=== PATIENT | male | born 1995 ===

== ENCOUNTER 2016-05-04 13:20 | Emergency (ER) | payer BC ==
[2016-05-04 14:55] VITALS: BP 131/48
--- NOTE | 2016-05-04 15:40 | UC ---
Lower Extremity/Ankle HPI - HPI Summary HPI Summary: 21 year old male patient complaining of right sided medial arch pain which began after prolonged running. Pain is the worse with the first steps of the morning and with his first steps after prolonged sitting. Flexion of the right foot increases the pain. Patient reports slight swelling in the right foot. - History of Current Complaint Chief Complaint: UCLowerExtremity Stated Complaint: FOOT INJURY Time Seen by Provider: 05/04/16 15:16 Hx Obtained From: Patient Onset/Duration: Lasting Minutes - Lasting the first few steps of the day Aggravating Factor(s): Ambulation Able to Bear Weight: Yes - Risk Factors Gout Risk Factors: Negative DVT Risk Factors: Negative Septic Arthritis Risk Factor: Negative - Allergies/Home Medications Allergies/Adverse Reactions: Allergies Allergy/AdvReac Type Severity Reaction Status Date / Time No Known Allergies Allergy Verified 05/04/16 14:55 Home Medications: Home Medications NK [No Home Medications Reported] 05/04/16 [History Confirmed 05/04/16] PMH/Surg Hx/FS Hx/Imm Hx Previously Healthy: Yes Endocrine History Of: Denies: Diabetes, Thyroid Disease, Hyperthyroidism, Hypothyroidism, Dyslipidemia Cardiovascular History Of: Denies: Cardiac Disorders, Hypertension, Pacemaker/ICD, Myocardial Infarction , Congestive Heart Failure, Atrial Fibrillation, Deep Vein Thrombosis, Bleeding Disorders Respiratory History Of: Denies: COPD, Asthma, Bronchitis, Pneumonia, Pulmonary Embolism GI/ History Of: Denies: Gastroesophageal Reflux, Ulcer, Gastrointestinal Bleed, Gall Bladder Disease, Kidney Stones, Diverticulitis, Renal Disease, Urosepsis Neurological History Of: Denies: TIA, CVA, Dementia, Seizures, Migraine Psychological History Of: Denies: Anxiety, Depression, Bipolar Disorder, Schizophrenia, Post Traumatic Stress Disorder - Surgical History Surgical History: Yes Surgery Procedure, Year, and Place: left shoulder surgery x2. piece of glass removed from right knee - Family History Known Family History: Positive: Unknown - Social History Occupation: Student Lives: Alone Alcohol Use: None Substance Use Type: None Smoking Status (MU): Never Smoked Tobacco Have You Smoked in the Last Year: No - Immunization History Most Recent Influenza Vaccination: 2016 fall Review of Systems Constitutional: Negative Skin: Negative Eyes: Negative ENT: Negative Respiratory: Negative Cardiovascular: Negative Gastrointestinal: Negative Genitourinary: Negative Motor: Other - Right footed arch pain with the first steps after positional changes Neurovascular: Negative Musculoskeletal: Negative Neurological: Negative Psychological: Negative All Other Systems Reviewed And Are Negative: Yes Physical Exam Triage Information Reviewed: Yes Appearance: Well-Appearing Vital Signs: Initial Vital Signs Temp 97.3 F 05/04/16 14:51 Pulse 47 05/04/16 14:51 Resp 16 05/04/16 14:51 BP 131/48 05/04/16 14:51 Pulse Ox 100 05/04/16 14:51 Vital Signs Reviewed: Yes Eye Exam: Normal Eyes: Positive: Conjunctiva Clear ENT Exam: Normal ENT: Positive: Normal ENT inspection, Hearing grossly normal, Pharynx normal, TMs normal Dental Exam: Normal Neck: Positive: Supple, Nontender Respiratory: Positive: Chest non-tender, Lungs clear, Normal breath sounds Cardiovascular: Positive: RRR, No Murmur, Pulses Normal Abdomen Description: Positive: Nontender, No Organomegaly, Soft Bowel Sounds: Positive: Present Musculoskeletal: Positive: Strength Intact, ROM Intact - Pain with right footed flexion Neurological Exam: Normal Neurological: Positive: Alert Psychological Exam: Normal Skin Exam: Normal Lower Extremity Course/Dx - Differential Dx/Diagnosis Provider Diagnoses: Right sided plantar fasciitis Discharge - Discharge Plan Condition: Stable Disposition: HOME Patient Education Materials: Plantar Fasciitis Exercises (GEN)
--- NOTE | 2016-05-04 15:57 | RAD ---
Indication: Medial foot pain. 3 views of the foot demonstrates no fracture. No other bone or joint abnormalities identified. IMPRESSION: No fracture of the foot is present.
== END 2016-05-04 16:15 | disposition home or self-care (01) ==
LOC: UCEAST 13:20
DX: M72.2 Plantar fascial fibromatosis (principal)
CPT/HCPCS: 99201; G0463